=== PATIENT | female | born 1950 | race Caucasian/White ===

== ENCOUNTER 2018-02-17 13:15 | Outpatient (CLI) | payer BC | END 2018-02-17 13:16 | disposition home or self-care (01) | LOC: WCC 13:15 | PROVIDERS: ATTEND Family Medicine | DX: K94.10 Enterostomy complication, unspecified (principal) | CPT/HCPCS: 99211; G0463 ==

== ENCOUNTER 2018-11-20 10:57 | Outpatient (CLI) | payer BC ==
[2018-11-20] MEDS ORDERED: Sodium Chloride 0.9% 15 ML NEB ONE (11:11)
== END 2018-11-20 10:58 | disposition home or self-care (01) ==
LOC: WCC 10:57
PROVIDERS: ATTEND Family Medicine
DX: K94.10 Enterostomy complication, unspecified (principal)
CPT/HCPCS: 99211; A4218; G0463

== ENCOUNTER 2020-04-16 14:21 | Inpatient (IN) | payer BC ==
[2020-04-16 14:48] LABS: #Eosinphils 0.2 thou/uL (0.0-0.7); #Lymphocytes 1.4 thou/uL (1.20-3.40); #Monocytes 0.3 thou/uL (0.11-0.59); #Neutrophils 2.8 thou/uL (1.40-6.50); %Eosinophils 4.1 % (0.0-10.0); %Lymphocytes 28.9 % (21.0-51.0); %Monocytes 6.5 % (0.0-10.0); %Neutrophils 59.6 % (42.0-75.0); Hemoglobin 12.8 g/dL (12.0-16.0); Mean Corpuscular HGB CONC 32.7 g/dL (32.0-36.0); Mean Corpuscular Hemoglobin 27.9 pg (27.0-31.0); Mean Corpuscular Volume 85.3 fL (78.0-98.0); Mean Platelet Volume 9.5 fL (7.4-10.4); Platelet Count 143 thou/uL (130-400); RBC Distribution Width 14.6 % (11.5-14.5); Red Blood Cell (RBC) Count 4.58 mill/uL (4.20-5.40); White Blood Cell (WBC) Count 4.7 thou/uL (4.8-10.8)
[2020-04-16 15:10] LABS: ALT (SGPT) 37 U/L (8-55); AST (SGOT) 44 U/L (5-34); Albumin 4.1 g/dL (3.4-4.8); Alkaline Phosphatase 78 U/L (40-110); Anion Gap 11 mmol/L (10-20); BUN (Urea Nitrogen) 18 mg/dL (9.8-20.1); Bilirubin, Total 0.4 mg/dL (0.2-1.2); Calc. Creatinine Clearance 0 mL/min (70-130); Calcium 9.3 mg/dL (7.8-10.44); Carbon Dioxide 24 mmol/L (23-31); Chloride 107 mmol/L (98-107); Estimated GFR-MDRD 49; Globulin 3.4 g/dL (2.4-3.5); Glucose 159 mg/dL (80-115); Potassium 3.9 mmol/L (3.5-5.1); Protein, Total 7.5 g/dL (6.0-8.3); Sodium 138 mmol/L (136-145)
[2020-04-16 17:55] LABS: Hemoglobin 11.1 g/dL (12.0-16.0)
--- NOTE | 2020-04-16 19:46 | PDOC.HHP ---
Hospitalist HPI - History of Present Illness gi bleeding History of Present Illness: Case of an 69y/o female with pmhx of chron's disease s/p total colectomy, gerd and alma who come to hospital due to bleeding into ileostomy. patient states she was on her usual state of health until today when she noted that her ileostomy bag had BRB, she did not gave much importance and continued her day but in 3 more occasions her ileostomy bag was full of BRB and she began to feel weak and lightheaded for which she came to hospital for evaluation. patient denies fever chills nausea vomiting or abdominal pain Hospitalist ROS - Review of Systems All other systems reviewed; all pertinent +/- noted in HPI/Subj Hospitalist History - Past Medical History Gastrointestinal: reports: GERD, Inflam bowel disease Psych: reports: Anxiety - Past Surgical History Past Surgical History: reports: Cholecystectomy, Hysterectomy Other Surgical History: total colectomy with ileostomy - Family History Family History: reports: diabetes mellitus Other Family History: mother alzheimer - Social History Smoking Status: Never smoker Alcohol: reports: None Drugs: reports: none Living Situation: With Family Activity level: independent ambulation - Exam General Appearance: awake alert Eye: PERRL, anicteric sclera ENT: normocephalic atraumatic, no oropharyngeal lesions Neck: supple, symmetric, no JVD, no thyromegaly Heart: RRR, no murmur, no gallops, no rubs Respiratory: CTAB, no wheezes, no rales, no ronchi Gastrointestinal: soft, non-tender, non-distended, normal bowel sounds Extremities: no cyanosis, no clubbing, no edema Skin: normal turgor, no lesions, no rashes Neurological: cranial nerve grossly intact, normal sensation to touch Musculoskeletal: normal tone, normal strength Psychiatric: normal affect, normal behavior, A&O x 3 Hospitalist Results - Labs Result Diagrams: 04/16/20 17:46 04/16/20 14:37 Lab results: WBC 4.7 thou/uL (4.8-10.8) L 04/16/20 14:37 Hgb 11.1 g/dL (12.0-16.0) L 04/16/20 17:46 Hct 34.2 % (36.0-47.0) L 04/16/20 17:46 MCV 85.3 fL (78.0-98.0) 04/16/20 14:37 Plt Count 143 thou/uL (130-400) 04/16/20 14:37 Neutrophils % 59.6 % (42.0-75.0) 04/16/20 14:37 Sodium 138 mmol/L (136-145) 04/16/20 14:37 Potassium 3.9 mmol/L (3.5-5.1) 04/16/20 14:37 Chloride 107 mmol/L (98-107) 04/16/20 14:37 Carbon Dioxide 24 mmol/L (23-31) 04/16/20 14:37 BUN 18 mg/dL (9.8-20.1) 04/16/20 14:37 Creatinine 1.10 mg/dL (0.6-1.1) 04/16/20 14:37 Glucose 159 mg/dL (80-115) H 04/16/20 14:37 Calcium 9.3 mg/dL (7.8-10.44) 04/16/20 14:37 Total Bilirubin 0.4 mg/dL (0.2-1.2) 04/16/20 14:37 AST 44 U/L (5-34) H 04/16/20 14:37 ALT 37 U/L (8-55) 04/16/20 14:37 Alkaline Phosphatase 78 U/L (40-110) 04/16/20 14:37 Serum Total Protein 7.5 g/dL (6.0-8.3) 04/16/20 14:37 Albumin 4.1 g/dL (3.4-4.8) 04/16/20 14:37 Hospitalist H&P A/P - Problem (1) GI bleeding Code(s): K92.2 - GASTROINTESTINAL HEMORRHAGE, UNSPECIFIED Status: Acute (2) ALMA (generalized anxiety disorder) Code(s): F41.1 - GENERALIZED ANXIETY DISORDER Status: Acute (3) GERD (gastroesophageal reflux disease) Code(s): K21.9 - GASTRO-ESOPHAGEAL REFLUX DISEASE WITHOUT ESOPHAGITIS Status: Acute (4) Hx of Crohn's disease Code(s): Z87.19 - PERSONAL HISTORY OF OTHER DISEASES OF THE DIGESTIVE SYSTEM Status: Acute - Plan Plan: - protonix drip - liquid diet / npo after midnight - gi consulted possible egd in am - h/h q 6-8hr
[2020-04-16 19:57] LABS: INR-International Normal Ratio 1.1; Prothrombin Time 14.2 sec (12.0-14.7)
[2020-04-16] MEDS: Pantoprazole 80 MG in Sodium Chloride 0.9% 100 ML IVPB SCH (21:39)
[2020-04-16] MEDS: Sodium Chloride 0.9% 1,000 ML IV SCH (21:39)
[2020-04-16 22:21] VITALS: BMI 30.9
[2020-04-17] MEDS ORDERED: Ondansetron PF 4 MG/2 ML Vial IVP PRN (00:05)
[2020-04-17 04:12] LABS: #Basophils 0.1 thou/uL (0.0-0.2); #Eosinphils 0.1 thou/uL (0.0-0.7); #Lymphocytes 1.2 thou/uL (1.20-3.40); #Monocytes 0.4 thou/uL (0.11-0.59); #Neutrophils 4.1 thou/uL (1.40-6.50); %Basophils 0.9 % (0.0-1.0); %Eosinophils 2.5 % (0.0-10.0); %Lymphocytes 20.8 % (21.0-51.0); %Monocytes 6.8 % (0.0-10.0); %Neutrophils 69.1 % (42.0-75.0); Hemoglobin 9.8 g/dL (12.0-16.0); Mean Corpuscular HGB CONC 33.5 g/dL (32.0-36.0); Mean Corpuscular Hemoglobin 28.5 pg (27.0-31.0); Mean Corpuscular Volume 85.2 fL (78.0-98.0); Mean Platelet Volume 9.4 fL (7.4-10.4); Platelet Count 129 thou/uL (130-400); RBC Distribution Width 14.6 % (11.5-14.5); Red Blood Cell (RBC) Count 3.42 mill/uL (4.20-5.40)
[2020-04-17 04:34] LABS: ALT (SGPT) 24 U/L (8-55); AST (SGOT) 30 U/L (5-34); Albumin 3.3 g/dL (3.4-4.8); Alkaline Phosphatase 53 U/L (40-110); Anion Gap 9 mmol/L (10-20); BUN (Urea Nitrogen) 15 mg/dL (9.8-20.1); Bilirubin, Total 0.4 mg/dL (0.2-1.2); Calc. Creatinine Clearance 84 mL/min (70-130); Carbon Dioxide 24 mmol/L (23-31); Chloride 109 mmol/L (98-107); Estimated GFR-MDRD 68; Globulin 2.6 g/dL (2.4-3.5); Glucose 108 mg/dL (80-115); Protein, Total 5.9 g/dL (6.0-8.3); Sodium 138 mmol/L (136-145)
[2020-04-17] MEDS: Pantoprazole 80 MG in Sodium Chloride 0.9% 100 ML IVPB SCH (05:15)
[2020-04-17 06:06] LABS: Hemoglobin 9.4 g/dL (12.0-16.0)
[2020-04-17] MEDS ORDERED: Lidocaine 1% PF 5 ML VIAL ONE (11:43)
[2020-04-17] MEDS ORDERED: PROPOFOL 200 MG/20 ML VIAL ONE (11:43)
--- NOTE | 2020-04-17 11:43 | CON ---
DATE OF CONSULTATION: 04/17/2020 REASON FOR CONSULTATION: Bright red blood per ostomy. CONSULTING PROVIDER: Jak Mir DO HISTORY OF PRESENT ILLNESS: The patient is a 69-year-old female with past medical history of GERD, anxiety/generalized anxiety disorder, and Crohn disease, status post total colectomy, presenting with bright red blood per her ostomy. On speaking with the patient, she states that she was diagnosed with Crohn disease approximately 33 years ago when she began having increased abdominal cramping, diarrhea and possible hematochezia. She subsequently underwent colonoscopy at that time and was noted to have severe colonic involvement. She was put on steroids with some response to treatment and was actually placed on tube feeds for "bowel rest." Ultimately, she did not respond effectively to steroids and subsequently underwent total colectomy approximately 1 month later after her diagnosis of Crohn disease. Since that time, she has not been placed on any medications or treatments for her Crohn disease, nor has she had any significant workup since then. She is currently being followed by Dr. Allen mcgovern at [facility], but has not had any recent ileoscopies since. She did state that she had an EGD performed there within the last few years for acid reflux and diagnosed only with a hiatal hernia. In any case, the patient was in her usual state of health until approximately yesterday when she began having bright red blood per her ostomy, having approximately 5 to 6 discrete episodes of emptying her bag over the last 12 to 24 hours with the bag consisting primarily of bright red blood with some stool mixed in. This continued on until today, but this morning she noted that when she emptied her ostomy, she no longer had any blood. During this time period, she denies any nausea, vomiting, fevers, chills, hematemesis, melena, odynophagia, dysphagia, hard stools, or weight loss. Of note, the patient has manipulated her ostomy within the last 24 hours, but this was after the onset of bleeding and not prior to. She also states she had a prior history of decreased hemoglobin/hematocrit in 2014 with workup at that time negative for any obvious etiology. REVIEW OF SYSTEMS: A 10-category review of systems was obtained with all responses negative except for the pertinent positives as listed in the HPI. PAST MEDICAL HISTORY: As per HPI. PAST SURGICAL HISTORY: Subtotal colectomy, cholecystectomy, hysterectomy, multiple abdominal surgeries for fistula correction secondary to complications from her cholecystectomy. FAMILY HISTORY: Denies any GI malignancies. SOCIAL HISTORY: Denies any alcohol, tobacco, or illicit drug use. OUTPATIENT MEDICATIONS: Reviewed. ALLERGIES: NO KNOWN DRUG ALLERGIES. PHYSICAL EXAMINATION: VITAL SIGNS: Temperature 97.7, pulse 82, blood pressure 115/55, respiratory rate 16, saturating 98% on room air. GENERAL: The patient is lying in bed, in no acute distress. Alert and oriented x4. HEENT: Normocephalic and atraumatic. NECK: Supple. No JVD or scleral icterus noted. CARDIOVASCULAR: Regular rate and rhythm with no discernible murmurs, gallops, or rubs. RESPIRATORY: Clear to auscultation bilaterally with no discernible wheezes or rales. ABDOMEN: Normoactive bowel sounds. Soft, nontender, nondistended. Ileostomy noted in the right mid to right lower quadrant with skin surrounding the ostomy healthy in appearance with no signs of skin breakdown nor was there any evidence of blood or active bleeding. EXTREMITIES: No cyanosis or clubbing. Mild nonpitting edema noted of the bilateral lower extremities. LABORATORY DATA: CBC with a white blood cell count of 6, hemoglobin 9.8, hematocrit 29.1, platelets 129. INR 1.1. Chemistry with a sodium of 138, potassium 4, chloride 109, CO2 of 24, BUN 15, creatinine 0.83, glucose 108. AST 30, ALT 24, alkaline phosphatase 53, total bilirubin 0.4, albumin 3.3. IMAGING DATA: No current GI imaging is available for review. ASSESSMENT AND PLAN: The patient is a 69-year-old female with past medical history of gastroesophageal reflux disease, anxiety/generalized anxiety disorder, and a prior diagnosis of Crohn disease (made 33 years ago), status post total colectomy for colonic involvement, now presenting with bright red blood per her ostomy concerning for upper gastrointestinal bleeding. Upper gastrointestinal bleeding: The patient is presenting with acute onset of bright red blood per ostomy that started yesterday with approximately 5 to 6 discrete episodes of bright red blood per the ostomy. However, she has not had any associated symptoms with this particular finding and on examination today, she has had decreased amount of blood with no blood per her ostomy this morning. However, she is currently taking meloxicam on a daily basis, which could contribute to inflammation/irritation of the gastrointestinal tract and subsequently lead to ulceration and/or bleeding. Differential could include esophagitis, gastritis, duodenitis, small bowel Crohn disease, peptic ulcer disease, arteriovenous malformation, Dieulafoy lesion and/or gastrointestinal neoplasm (less likely at this time). RECOMMENDATIONS: 1. We would continue to trend her H and H and transfuse as necessary to maintain an H and H of 7/21. 2. Continue to monitor clinically for signs of active GI bleeding. 3. We would avoid any anticoagulation for the time being in light of active blood loss. 4. We would continue n.p.o. status in preparation for EGD/ileoscopy later today. 5. We will continue the patient on PPI drip for the time being and alter based on upper endoscopy results. 6. If the upper GI endoscopy is negative, we would consider a tagged red cell scan for further evaluation if the patient exhibits continued blood loss. We will continue to follow. Please call with any questions. Job ID: [id number]
[2020-04-17] MEDS: Sodium Chloride 0.9% 1,000 ML IV SCH (15:32)
[2020-04-17 16:46] LABS: Hemoglobin 8.8 g/dL (12.0-16.0)
[2020-04-17 17:09] LABS: Iron Binding Capacity, Total 341 mcg/dL (265-497)
[2020-04-17 17:20] LABS: Iron 41 ug/dL (50-170)
--- NOTE | 2020-04-17 17:37 | OP ---
DATE OF PROCEDURE: 04/17/2020 REASON FOR PROCEDURE: Blood in ostomy. PROCEDURES PERFORMED: 1. Esophagogastroduodenoscopy with biopsy. 2. Ileoscopy (diagnostic). DESCRIPTION OF PROCEDURE: After the risks and benefits of the procedure were explained to the patient including risks of bleeding, infection, perforation, reactions to anesthesia, aspiration, and/or pain, informed consent was obtained. The patient was then taken to the endoscopy suite where she was placed in the left lateral decubitus position followed by introduction of sedation via propofol and anesthesia support. Once adequate sedation was achieved, the standard gastroscope was introduced into the mouth with intubation of the esophagus, stomach, and the proximal small intestines with the findings listed below. Upon conclusion of this portion of the procedure and with relatively normal findings, the gastroscope was removed from the upper GI tract, and after opening the ileostomy bag, the same gastroscope was used to evaluate the external ostomy as well as advanced into the ileostomy to approximately 35 to 40 cm past the ostomy within the ileum with the findings listed below. The patient tolerated this portion of the procedure well with no immediate perioperative complications. Upon conclusion of this phase of the procedure, all equipment was then removed from the patient and she was transferred to PACU in satisfactory condition. EGD FINDINGS: Esophagus: Normal-appearing mucosa was seen in the proximal, mid, and distal esophagus. A mildly irregular Z-line was noted in the distal esophagus, but there was no evidence of Brady's type mucosa or active/recent bleeding. Otherwise, there was no evidence of erosions, ulcerations, or mass lesions. Stomach: Multiple flesh-colored polyps were seen in the gastric fundus and body, measuring anywhere between 2 and 17 mm in size. They did not exhibit any increased erythema, ulceration, or evidence of active/recent bleeding. Multiple biopsies were taken from these polyps for further evaluation of possible adenomatous tissue. Otherwise, normal-appearing mucosa was seen in the gastric cardia, greater curvature, antrum, and incisura. There was no evidence of erosions, ulcerations, mass lesions, or active/recent bleeding seen throughout the entire stomach. Duodenum: Normal-appearing mucosa was seen in both the duodenal bulb and second portion of the duodenum. A small duodenal diverticulum was seen just past the duodenal sweep, but did not exhibit any blood clot nor did it have any ulceration associated with it. Otherwise, normal-appearing mucosa was seen in both the duodenal bulb and second portion of the duodenum. There was no evidence of erosions, ulcerations, mass lesions, or active/recent bleeding. IMPRESSION: 1. Multiple gastric polyps seen throughout the gastric fundus and body, consistent with fundic gland polyps related to proton pump inhibitor use. 2. Small nonbleeding duodenal diverticulum. 3. Slightly irregular Z-line with no evidence of esophagitis. ILEOSCOPY FINDINGS: Ostomy: On visualization of the ostomy through the camera and the ostomy bag itself, there was increased erythema, friability and a blood clot formation along the lateral aspect of the ostomy itself. However, there was no evidence of active bleeding associated with this. The mucosal lining appeared to be more macerated with no particular focal area of visible vessel or even active bleeding in this region. No intervention was taken given lack of target for cauterization and lack of active bleeding at this time. The gastroscope was then introduced into the ileum and advanced to approximately 35 to 40 cm past the ostomy orifice itself. Normal-appearing ileum was seen throughout this entire region with no evidence of erosions, ulcerations, mass lesions, or active/recent bleeding. IMPRESSION: 1. Increased mucosal erythema, friability, and a blood clot noted along the outward aspect of the ostomy itself, that was in the bag, most likely being the source of her recent bleeding. 2. Otherwise normal ileoscopy. RECOMMENDATIONS: 1. Would continue to trend her hemoglobin and hematocrit and transfuse as necessary to maintain the hemoglobin and hematocrit of 7/21. 2. Continue to monitor clinically for signs of active GI bleeding. 3. We will follow up on the biopsy results with repeat upper endoscopy based on pathology report. 4. If the patient continues to have bright red blood per ostomy, I would consult General Surgery Service for evaluation of the external ostomy and possible cauterization. 5. Would continue to avoid NSAIDs and/or anticoagulation for the time being. 6. Could discontinue PPI if not already taking as an outpatient. We will sign off at this time. Please call with any questions. Job ID: [id number]
--- NOTE | 2020-04-17 18:55 | PRG ---
DATE OF SERVICE: 04/17/2020 SUBJECTIVE: A 69-year-old female with Crohn disease, status post total colectomy and ileostomy, presented to the emergency room yesterday with lower GI bleeding. She had 3 episodes of bleeding while in the emergency room. She also felt weak and lightheaded. At this time, the patient denies any new complaints. No chest pain or shortness of breath reported. She underwent EGD and diagnostic ileoscopy. The ileoscopy showed increased mucosal erythema, friability, and blood clot along the outward aspect of the ostomy. The EGD showed multiple gastric polyps with small nonbleeding duodenal diverticulum. REVIEW OF SYSTEMS: All other review of systems was reviewed and was found negative. LABORATORY FINDINGS: Telemetry monitoring by my review showed sinus rhythm. H and H dropped to 8.8 from 12.8 on admission. PT/INR was normal. Ferritin was 7.64 with iron of 41 and ferritin of 341. PHYSICAL EXAMINATION: GENERAL: A 69-year-old female in no apparent distress. LUNGS: Clear to auscultation bilaterally. HEART: S1 and S2 present. Regular. ABDOMEN: Soft and nontender. Bowel sounds present. Ileostomy noted without any bloody stool. EXTREMITIES: No edema or calf tenderness. NEUROLOGIC: Grossly nonfocal. IMPRESSION: 1. Gastrointestinal bleeding. 2. Acute blood loss anemia. 3. Generalized weakness and lightheadedness secondary to above. 4. Anxiety. 5. Gastroesophageal reflux disease. 6. History of Crohn disease, status post total colectomy and ileostomy. PLAN: We will continue to trend H and H. We will continue IV PPIs. We will start her on IV iron supplementation. The patient is currently on full liquid diet. Stool workup was negative for Campylobacter or E coli. We will check orthostatic vitals in a.m. The patient understands the above plan of care. Job ID: [id number]
[2020-04-17] MEDS ORDERED: Iron, Sodium Ferric Gluconate 250 MG in Sodium Chloride 0.9% 100 ML IVPB SCH (19:30)
[2020-04-17 21:48] LABS: Hemoglobin 8.8 g/dL (12.0-16.0)
[2020-04-18 04:54] LABS: Hemoglobin 8.6 g/dL (12.0-16.0)
[2020-04-18] MEDS: Pantoprazole 40 MG VIAL IVP SCH (08:48)
[2020-04-18] MEDS ORDERED: Iron, Sodium Ferric Gluconate 250 MG in Sodium Chloride 0.9% 100 ML IVPB SCH (13:45)
--- NOTE | 2020-04-18 14:31 | PDOC.HOSPP ---
- Subjective Encounter Date: 04/18/20 Encounter Time: 13:00 Subjective: Patient seen and examined for GI bleed. Had small amt of blood in ileostomy bag. Feels weak. No N/V. No other complaints. No overnight events - Objective Vital Signs & Weight: Vital Signs (12 hours) Temp Pulse Resp BP BP BP Pulse Ox 04/18/20 11:48 98.3 F 73 16 110/57 L 95 04/18/20 07:56 97.5 F L 72 18 99/54 L 107/58 L 120/60 98 04/18/20 07:10 96 04/18/20 03:28 97.8 F 69 16 105/55 L 96 Weight Weight 186 lb 3 oz I&O: 04/17/20 04/18/20 04/19/20 06:59 06:59 06:59 Intake Total 1035 463 Balance 1035 463 Result Diagrams: 04/18/20 04:39 04/17/20 03:52 Hospitalist ROS - Review of Systems Respiratory: denies: cough, dry, shortness of breath, hemoptysis, SOB with excertion, pleuritic pain, sputum, wheezing, other Cardiovascular: denies: chest pain, palpitations, orthopnea, paroxysmal noc. dyspnea, edema, light headedness, other - Medication Medications: Active Medications Generic Name Dose Route Start Last Admin Trade Name Freq PRN Reason Stop Dose Admin Ondansetron HCl 4 mg 04/17/20 00:05 04/17/20 00:17 Zofran IVP 4 mg Q6H PRN Administration Nausea Pantoprazole Sodium 40 mg 04/18/20 09:00 04/18/20 08:48 Protonix IVP 40 mg DAILY GEORGIANA Administration Sodium Chloride 10 ml 04/16/20 19:37 04/17/20 19:25 Flush - Normal Saline IVF 10 ml PRN PRN Administration Saline Flush - Exam General Appearance: NAD Neck: supple, no JVD Heart: no gallops, no rubs Respiratory: no wheezes, no rales Gastrointestinal: non-tender, non-distended, normal bowel sounds Extremities: no cyanosis, no clubbing Psychiatric: normal affect, A&O x 3 Hosp A/P - Plan DVT proph w/SCDs 1. GI bleeding prob at the ileostomy site 2. Acute blood loss anemia/ Iron deficiency anemia 3. Generalized weakness and lightheadedness secondary to above. 4. Anxiety. 5. Gastroesophageal reflux disease. 6. History of Crohn disease, status post total colectomy and ileostomy. PLAN: IV iron Cont IV PPIs Repeat HH today GI following AM labs Cont other meds as above
[2020-04-18 14:44] LABS: Hemoglobin 8.2 g/dL (12.0-16.0)
[2020-04-18] MEDS: ALPRAZolam 0.25 MG TAB PO PRN (17:58)
[2020-04-18] MEDS: Sodium Chloride 0.9% 1,000 ML IV SCH (18:00)
[2020-04-18 19:03] LABS: Hemoglobin 8.3 g/dL (12.0-16.0)
[2020-04-18 23:45] LABS: Hemoglobin 7.5 g/dL (12.0-16.0)
[2020-04-19 04:11] LABS: Hemoglobin 7.2 g/dL (12.0-16.0)
[2020-04-19] MEDS: Sodium Chloride 0.9% 1,000 ML IV SCH (09:42)
[2020-04-19] MEDS: Pantoprazole 40 MG VIAL IVP SCH (09:43)
[2020-04-19 13:40] LABS: Hemoglobin 6.9 g/dL (12.0-16.0)
[2020-04-19] MEDS: D5W-AA 4.25% with LYTES 1,000 ML BAG IV SCH (18:13)
[2020-04-19 20:24] LABS: Hemoglobin 8.6 g/dL (12.0-16.0)
--- NOTE | 2020-04-19 23:22 | PDOC.HOSPP ---
- Subjective Encounter Date: 04/19/20 Encounter Time: 13:00 Subjective: Patient seen and examined for GI bleed. Ileostomy with bloody stool. Feels lightheaded. No other complaints. No overnight events - Objective Vital Signs & Weight: Vital Signs (12 hours) Temp Pulse Pulse Resp BP BP BP 04/19/20 20:15 97.7 F 82 16 123/58 L 04/19/20 17:00 98.5 F 82 82 16 101/54 L 101/54 L 04/19/20 14:00 98.5 F 81 16 110/56 L 04/19/20 13:30 98.2 F 79 16 114/58 L 04/19/20 11:42 98.3 F 82 16 109/55 L Pulse Ox 04/19/20 20:15 96 04/19/20 17:00 99 04/19/20 14:00 98 04/19/20 13:30 100 04/19/20 11:42 97 Weight Weight 186 lb 3 oz I&O: 04/18/20 04/19/20 04/20/20 06:59 06:59 06:59 Intake Total 2243 2673 Output Total 2475 375 Balance -232 2298 Result Diagrams: 04/19/20 20:02 04/17/20 03:52 Additional Labs: Laboratory Tests 04/19/20 13:31 Hgb 6.9 L Hospitalist ROS - Review of Systems Respiratory: denies: cough, dry, shortness of breath, hemoptysis, SOB with excertion, pleuritic pain, sputum, wheezing, other Cardiovascular: reports: light headedness. denies: chest pain, palpitations, orthopnea, paroxysmal noc. dyspnea, edema, other - Medication Medications: Active Medications Generic Name Dose Route Start Last Admin Trade Name Freq PRN Reason Stop Dose Admin Alprazolam 0.25 mg 04/18/20 17:42 04/18/20 17:58 Xanax PO 0.25 mg BIDPRN PRN Administration Anxiety Amino Acids/Electrolytes/Dextrose 1,000 ml 04/19/20 12:00 04/19/20 18:13 Clinimix E 4.25/5 IV 1,000 ml INF GE[place]NA Administration Ondansetron HCl 4 mg 04/17/20 00:05 04/17/20 00:17 Zofran IVP 4 mg Q6H PRN Administration Nausea Pantoprazole Sodium 40 mg 04/18/20 09:00 04/19/20 09:43 Protonix IVP 40 mg DAILY [place]NA Administration Sodium Chloride 10 ml 04/16/20 19:37 04/17/20 19:25 Flush - Normal Saline IVF 10 ml PRN PRN Administration Saline Flush - Exam General Appearance: NAD Neck: supple, no JVD Heart: RRR, no gallops Respiratory: no wheezes, no ronchi Gastrointestinal: non-tender, normal bowel sounds Extremities: no edema Hosp A/P - Plan DVT proph w/SCDs 1. GI bleeding prob at the ileostomy site 2. Acute blood loss anemia/ Iron deficiency anemia s/p IV iron 3. Generalized weakness and lightheadedness secondary to above. 4. Anxiety. 5. Gastroesophageal reflux disease. 6. History of Crohn disease, status post total colectomy and ileostomy. PLAN: Transfuse 1 unit PRBC Cont IV PPIs Repeat HH Q6h GI/Surg following Cont other meds as above Transfuse if Hb <7
--- NOTE | 2020-04-19 23:44 | CON ---
DATE OF CONSULTATION: CHIEF COMPLAINT: Ileostomy bleeding. HISTORY OF PRESENT ILLNESS: The patient is a 69-year-old female with a long history of Crohn disease, who had a total colectomy for Crohn disease done in [place]. She was admitted with stomal bleeding. She denies any history of trauma or abrasion to the stoma. Yesterday, she underwent endoscopy and Dr. Booker said that the mucosa looked fine and that he saw bleeding coming from the external mucosa. He saw no evidence of active Crohn's in her intestinal system. She bled significantly from a level of hemoglobin 12.8 to 6.9. The patient denies any abdominal pain. PAST MEDICAL HISTORY: Anxiety, depression, gastroesophageal reflux, Crohn disease. PAST SURGICAL HISTORY: Subtotal colectomy, cholecystectomy, hysterectomy, multiple abdominal surgeries. FAMILY HISTORY: No GI malignancies. SOCIAL HISTORY: No tobacco or alcohol. ALLERGIES: SHE HAS NO KNOWN DRUG ALLERGIES. PHYSICAL EXAMINATION: VITAL SIGNS: Temperature 98.5, pulse 98, blood pressure 110/56. GENERAL: She is awake, alert, does not appear to be in any distress. HEENT: Unremarkable. LUNGS: Clear. HEART: Regular rate and rhythm. ABDOMEN: Soft, nondistended. She is obese. She has an ileostomy in the right lower quadrant. EXTREMITIES: Unremarkable. Now, the appliance was removed. The mucosa inspected. I saw no active bleeding on the external portion of her ileostomy. There was no blood coming out from the ostomy. ASSESSMENT: Gastrointestinal bleed from ileostomy, appears to be controlled at this time. PLAN: I did bring with me the suture kit that if it should start bleeding again, we could suture-ligate this. Now the patient has a very good relationship with her surgeon in [place]. She has been in communication with him. She does not want any kind of surgical intervention done here if at all possible. She would like to go back to [place], so hopefully she will stop bleeding and she can follow up with her surgeon in [place]. Job ID: [id number]
[2020-04-20 05:02] LABS: Hemoglobin 7.8 g/dL (12.0-16.0)
[2020-04-20] MEDS: D5W-AA 4.25% with LYTES 1,000 ML BAG IV SCH ×2 (05:44→22:05)
[2020-04-20 08:37] LABS: Hemoglobin 8.6 g/dL (12.0-16.0)
[2020-04-20] MEDS: Pantoprazole 40 MG VIAL IVP SCH (09:50)
--- NOTE | 2020-04-20 14:01 | PDOC.HOSPP ---
- Subjective Encounter Date: 04/20/20 Encounter Time: 09:30 Subjective: Patient seen and examined for GIB. s/p 1 unit PRBC yesterday. Lightheadedness slowly improving. No new bleeding. On clear liqd diet. No new complaints. No overnight events - Objective Vital Signs & Weight: Vital Signs (12 hours) Temp Pulse Resp BP Pulse Ox 04/20/20 11:32 98.3 F 82 16 127/65 100 04/20/20 08:00 98.3 F 90 16 133/62 97 04/20/20 03:42 98.2 F 87 16 106/56 L 95 Weight Weight 186 lb 3 oz I&O: 04/19/20 04/20/20 04/21/20 06:59 06:59 06:59 Intake Total 2243 2673 2729 Output Total 7945 500 Balance -232 2173 2729 Result Diagrams: 04/20/20 08:26 04/17/20 03:52 Additional Labs: Laboratory Tests 04/17/20 04/17/20 04/19/20 16:35 16:35 13:31 Hgb 6.9 L Iron 41 L TIBC 341 Ferritin 7.64 L Hospitalist ROS - Review of Systems Respiratory: denies: cough, dry, shortness of breath, hemoptysis, SOB with excertion, pleuritic pain, sputum, wheezing, other Cardiovascular: denies: chest pain, palpitations, orthopnea, paroxysmal noc. dyspnea, edema, light headedness, other Gastrointestinal: denies: nausea, vomiting, abdominal pain, diarrhea, constipation, melena, hematochezia, other - Medication Medications: Active Medications Generic Name Dose Route Start Last Admin Trade Name Freq PRN Reason Stop Dose Admin Alprazolam 0.25 mg 04/18/20 17:42 04/18/20 17:58 Xanax PO 0.25 mg BIDPRN PRN Administration Anxiety Amino Acids/Electrolytes/Dextrose 1,000 ml 04/19/20 12:00 04/20/20 05:44 Clinimix E 4.25/5 IV 1,000 ml INF [place] Administration Ondansetron HCl 4 mg 04/17/20 00:05 04/17/20 00:17 Zofran IVP 4 mg Q6H PRN Administration Nausea Pantoprazole Sodium 40 mg 04/18/20 09:00 04/20/20 09:50 Protonix IVP 40 mg DAILY [place] Administration Sodium Chloride 10 ml 04/16/20 19:37 04/17/20 19:25 Flush - Normal Saline IVF 10 ml PRN PRN Administration Saline Flush - Exam General Appearance: NAD Heart: RRR, no gallops Respiratory: no wheezes, no ronchi Gastrointestinal: soft, non-tender, non-distended, normal bowel sounds Gastrointestinal - other findings: ileostomy Extremities: no cyanosis, no clubbing Neurological: no new deficit Psychiatric: normal affect, A&O x 3 Hosp A/P - Plan DVT proph w/SCDs 1. GI bleeding prob at the ileostomy site 2. Acute blood loss anemia/Iron deficiency anemia s/p IV iron and 1 unit PRBC 3. Generalized weakness and lightheadedness secondary to above. 4. Anxiety. 5. GERD 6. History of Crohn disease, status post total colectomy and ileostomy. PLAN: Cont clear liqd diet Cont IV PPI Repeat HH later today and in AM GI/Surg following Cont other meds as above Transfuse if Hb <7 DC prob in AM if stable
[2020-04-20 14:51] LABS: Hemoglobin 8.5 g/dL (12.0-16.0)
[2020-04-20 17:51] LABS: Hemoglobin 8.6 g/dL (12.0-16.0)
[2020-04-20] MEDS: ALPRAZolam 0.25 MG TAB PO PRN (19:22)
[2020-04-20 23:17] LABS: Hemoglobin 8.7 g/dL (12.0-16.0)
[2020-04-20] MEDS: Acetaminophen 325 MG TAB PO PRN (23:20)
[2020-04-21 03:47] LABS: Hemoglobin 7.6 g/dL (12.0-16.0)
--- NOTE | 2020-04-21 08:13 | PRG ---
DATE OF SERVICE: 04/21/2020 SUBJECTIVE: The patient had another episode of bleeding now. Day before yesterday, I took the entire appliance off including the wafer and bag. We cleaned it up. I could not find any source for the bleeding externally. Last night, she started passing clots out her ostomy. Again, she looked and could not see a source for it externally and felt like the clots were coming from inside. OBJECTIVE: GENERAL: She is in no apparent distress. She is having no abdominal pain. LUNGS: Clear. HEART: Regular rate and rhythm. ABDOMEN: Soft, nondistended, nontender. The ostomy effluent is nonbloody. The stoma itself has no ulcerations or evidence of active bleeding. LABORATORY DATA: Her H and H are 7.6 and 23. Electrolytes are fine. ASSESSMENT: This bleeding must be coming in the canal of the ostomy, which I cannot get to that, it is too tight for me to dilate up to expose an area to even access. PLAN: She probably needs to have her ostomy revised. She does not want us to do that here. She prefers to go to [place] where her original surgeon lives. She has been in contact with him. Plan possible repeat endoscopy today, but she probably needs to be transferred to [place], so that this can be addressed. Job ID: [id number]
[2020-04-21] MEDS: Pantoprazole 40 MG VIAL IVP SCH (09:00)
--- NOTE | 2020-04-21 11:47 | NM ---
Exam: Nuclear medicine tagged red blood cell scan TECHNIQUE: Patient was administered 28.1 mCi of tagged red blood cell intravenously. Imaging was perf ormed for approximately 90 minutes FINDINGS: There is a focus of increased radiotracer in the right lower quadrant corresponding to the patient's ileostomy site. Patient states that her entire colon has been removed. IMPRESSION: Focal uptake of the radiotracer in the right lower quadrant corresponding to the ileostom y site.
--- NOTE | 2020-04-21 14:12 | PDOC.HOSPP ---
- Subjective Encounter Date: 04/21/20 Encounter Time: 13:30 Subjective: Patient seen and examined for GIB. No new complaints. No overnight events - Objective Vital Signs & Weight: Vital Signs (12 hours) Temp Pulse Resp BP BP BP BP 04/21/20 11:40 98.2 F 103 H 18 113/63 04/21/20 08:00 98 F 80 16 114/60 110/52 L 114/60 113/57 L 04/21/20 03:39 97.9 F 70 16 109/55 L Pulse Ox 04/21/20 11:40 100 04/21/20 08:00 100 04/21/20 03:39 94 L Weight Admit Weight 186 lb 3 oz Weight 186 lb 3 oz I&O: 04/20/20 04/21/20 04/22/20 06:59 06:59 06:59 Intake Total 2673 5791 200 Output Total 500 3700 Balance 2173 2091 200 Result Diagrams: 04/21/20 03:36 04/17/20 03:52 Hospitalist ROS - Medication Medications: Active Medications Generic Name Dose Route Start Last Admin Trade Name Freq PRN Reason Stop Dose Admin Acetaminophen 650 mg 04/17/20 08:34 04/20/20 23:20 Tylenol PO 650 mg Q4H PRN Administration Headache/Fever/Mild Pain (1-3) Alprazolam 0.25 mg 04/18/20 17:42 04/20/20 19:22 Xanax PO 0.25 mg BIDPRN PRN Administration Anxiety Amino Acids/Electrolytes/Dextrose 1,000 ml 04/19/20 12:00 04/20/20 22:05 Clinimix E 4.25/5 IV 1,000 ml INF [place] Administration Ondansetron HCl 4 mg 04/17/20 00:05 04/17/20 00:17 Zofran IVP 4 mg Q6H PRN Administration Nausea Pantoprazole Sodium 40 mg 04/18/20 09:00 04/21/20 09:00 Protonix IVP Not Given DAILY [place] Sodium Chloride 10 ml 04/16/20 19:37 04/17/20 19:25 Flush - Normal Saline IVF 10 ml PRN PRN Administration Saline Flush Hosp A/P - Plan 1. GI bleeding prob at the ileostomy site 2. Acute blood loss anemia/Iron deficiency anemia s/p IV iron and 1 unit PRBC 3. Generalized weakness and lightheadedness secondary to above. 4. Anxiety. 5. GERD 6. History of Crohn disease, status post total colectomy and ileostomy. PLAN: Cont clear liqd diet Cont IV PPI Repeat HH later today and in AM GI/Surg following Cont other meds as above Transfuse if Hb <7 DC prob in AM if stable
[2020-04-21 16:34] VITALS: BP 118/65; TEMP 98.8
[2020-04-21] MEDS: Acetaminophen 325 MG TAB PO PRN (18:03)
[2020-04-21] MEDS: ALPRAZolam 0.25 MG TAB PO PRN (18:03)
--- NOTE | 2020-04-22 01:58 | DIS ---
DATE OF ADMISSION: 04/16/2020 DATE OF DISCHARGE: 04/21/2020 DISCHARGE DISPOSITION: [facility] in [place] for higher level of care. The patient was seen and examined on the day of discharge. Denies any new complaints. No new GI bleeding today. BRIEF HOSPITAL COURSE: The patient is a 69-year-old white female with Crohn disease, status post total colectomy and ileostomy, presented to the hospital with lower GI bleeding. She was monitored closely with frequent hemoglobin checks. Orthostatic vitals remained negative. She was found to have iron deficiency, for which she received two doses of IV iron. She also received 1 unit of PRBC this admission for hemoglobin drop of 6.9. She underwent EGD and ileoscopy. EGD showed multiple gastric polyps seen throughout the gastric fundus and the body consistent with fundic gland polyps related to PPI use. There was also small nonbleeding duodenal diverticulum with slight irregular Z-line with no evidence of esophagitis. Ileoscopy showed increased mucosal erythema, friability, and blood clot noted along the output aspect of the ostomy, most likely the source of bleeding. Her bleeding recurred at two different occasions. She had a nuclear medicine tagged red blood cell scan today that showed focal uptake of radiotracer in the right lower quadrant corresponding to the ileostomy site. Her H and H today is 7.6. I discussed the case with the primary surgeon, Dr. Cohen at [facility]. He recommended the patient to be transferred to that facility for higher level of care. The patient was accepted by the hospitalist at that facility. FINAL DIAGNOSES: 1. Gastrointestinal bleeding at the ileostomy site. 2. Acute blood loss anemia, status post 1 unit of PRBC. 3. Iron deficiency anemia, status post IV iron. Her iron was 41 with TIBC 341 and ferritin of 7.64. 4. Anxiety. 5. Gastroesophageal reflux disease. 6. Crohn disease, status post total colectomy and ileostomy. 7. The patient understands the above plan of care. Job ID: [id number]
[2020-04-22] MEDS ORDERED: Escitalopram Oxalate 10 mg Tablet PO SCH (09:00)
--- NOTE | 2020-04-22 11:01 | EKG ---
Test Reason : Blood Pressure : / mmHG Vent. Rate : 071 BPM Atrial Rate : 071 BPM P-R Int : 142 ms QRS Dur : 086 ms QT Int : 406 ms P-R-T Axes : 012 -02 057 degrees QTc Int : 441 ms Normal sinus rhythm Normal ECG Confirmed by JASWINDER KNIGHT DO ([id number]), pictures editor CASEY CAMARILLO ([id number]) on 04/22/2020 11:01:36 AM Referred By: Confirmed By:JASWINDER KNIGHT DO
== END 2020-04-21 18:54 | disposition short-term general hospital (02) | DRG 394 ==
LOC: ERS 14:21 → 2NO 21:33 → OBSVTOIN 21:33 → ONC 04-17 18:48
PROVIDERS: ADMIT Internal Medicine; ATTEND Internal Medicine
PROC: 0DB68ZX Excision of Stomach, Via Natural or Artificial Opening Endoscopic, Diagnostic (ICD-10-PCS; principal; 2020-04-17)
PROC: 0DJD8ZZ Inspection of Lower Intestinal Tract, Via Natural or Artificial Opening Endoscopic (ICD-10-PCS; 2020-04-17)
PROC: 30233N1 Transfusion of Nonautologous Red Blood Cells into Peripheral Vein, Percutaneous Approach (ICD-10-PCS; 2020-04-19)
DX: K94.11 Enterostomy hemorrhage (principal); D62 Acute posthemorrhagic anemia; Y83.3 Surgical operation with formation of external stoma as the cause of abnormal reaction of the patient, or of later complication, without mention of misadventure at the time of the procedure; D50.9 Iron deficiency anemia, unspecified; K21.9 Gastro-esophageal reflux disease without esophagitis; F41.1 Generalized anxiety disorder; M19.90 Unspecified osteoarthritis, unspecified site; F32.9 Major depressive disorder, single episode, unspecified; K31.7 Polyp of stomach and duodenum; K57.10 Diverticulosis of small intestine without perforation or abscess without bleeding; T47.1X5A Adverse effect of other antacids and anti-gastric-secretion drugs, initial encounter; Z90.49 Acquired absence of other specified parts of digestive tract; Z90.710 Acquired absence of both cervix and uterus; Z87.19 Personal history of other diseases of the digestive system; Z79.899 Other long term (current) drug therapy
CPT/HCPCS: 36415; 36430; 78278; 80053; 82728; 83540; 83550; 85014; 85018; 85025; 85610; 86850; 86900; 86901; 87045; 87046; 87427; 87449; 88305; 88312; 93005; 96361; 96365; 96375; 96376; A9604; C9113; G0378; J2001; J2405; J2704; J2916; J3490; P9016

== ENCOUNTER 2025-08-05 12:34 | Outpatient (CLI) | payer MEDICARE ==
[2025-08-05 13:38] LABS: #Basophils Less than 0.03 10x3/uL (0.0-0.2); #Eosinophils 0.11 10x3/uL (0.0-0.7); #Monocytes 0.28 10x3/uL (0.11-0.59); #Neutrophils 2.14 10x3/uL (1.40-6.50); %Basophils 0.6 % (0.0-1.0); %Eosinophils 3.4 % (0.0-10.0); %Lymphocytes 21.5 % (21.0-51.0); %Monocytes 8.6 % (0.0-10.0); %Neutrophils 65.6 % (42.0-75.0); Hematocrit 35.8 % (36.0-47.0); Hemoglobin 11.6 g/dL (12.0-16.0); Mean Corpuscular Hemoglobin 29.7 pg (27.0-31.0); Mean Corpuscular Volume 91.6 fL (78.0-98.0); Platelet Count 111 10x3/uL (130-400); Red Blood Cell (RBC) Count 3.91 mill/uL (4.20-5.40); White Blood Cell (WBC) Count 3.26 10x3/uL (4.8-10.8)
[2025-08-05 13:55] LABS: Anion Gap 13 mmol/L (10-20); BUN (Urea Nitrogen) 17 mg/dL (9.8-20.1); Calc. Creatinine Clearance 0 mL/min (70-130); Calcium 8.9 mg/dL (7.8-10.44); Carbon Dioxide 26 mmol/L (23-31); Chloride 107 mmol/L (98-107); Glucose 108 mg/dL (83-110); Potassium 3.9 mmol/L (3.5-5.1); Sodium 142 mmol/L (136-145)
== END 2025-08-05 12:35 | disposition home or self-care (01) ==
LOC: LABBT 12:34
PROVIDERS: ATTEND Internal Medicine
DX: Z01.818 Encounter for other preprocedural examination (principal); K94.10 Enterostomy complication, unspecified
CPT/HCPCS: 80048; 85025; 93005; 93010

== ENCOUNTER 2025-08-08 09:37 | Day surgery (SDC) | payer MEDICARE ==
[2025-08-05 12:52] VITALS: BMI 28.3
[2025-08-08] MEDS ORDERED: fentaNYL PF 100 MCG/2 ML SYRINGE ONE ×2 (12:22→12:27)
[2025-08-08] MEDS ORDERED: PROPOFOL 0 ML ONE (12:22)
[2025-08-08] MEDS ORDERED: Rocuronium Bromide 10 MG/ML (10ML VIAL) ONE ×2 (12:22→12:29)
[2025-08-08] MEDS ORDERED: PROPOFOL 20 ML ONE (12:28)
[2025-08-08] MEDS ORDERED: Lidocaine 1% PF 5 ML VIAL ONE (12:29)
[2025-08-08] MEDS ORDERED: hydrALAZINE 20 MG/ML VIAL SLOW IVP PRN (12:53)
[2025-08-08] MEDS ORDERED: Ondansetron PF 4 MG/2 ML Vial IVP PRN (12:53)
[2025-08-08] MEDS ORDERED: metroNIDAZOLE 500 MG (100 mL) BAG ONE (12:56)
[2025-08-08] MEDS ORDERED: CEFAZOLIN 2 GM VIAL ONE (12:57)
[2025-08-08] MEDS ORDERED: Acetaminophen 325 MG TAB PO SCH (13:00)
[2025-08-08] MEDS ORDERED: Ondansetron PF 4 MG/2 ML Vial ONE (13:30)
[2025-08-08] MEDS ORDERED: SUGAMMADEX SODIUM 200 MG/2 ML VIAL ONE (13:38)
[2025-08-08] MEDS ORDERED: Ketorolac Tromethamine 30 MG (1 mL) VIAL IVP SCH (18:00)
[2025-08-09] MEDS ORDERED: Enoxaparin 40 MG (0.4 mL) SYRINGE SC SCH (09:00)
== END 2025-08-08 15:23 | disposition home or self-care (01) ==
LOC: SDC 09:37
PROVIDERS: ATTEND Surgery
PROC: 0DW807Z Revision of Autologous Tissue Substitute in Small Intestine, Open Approach (ICD-10-PCS; principal; 2025-08-08)
DX: K94.10 Enterostomy complication, unspecified (principal); K21.9 Gastro-esophageal reflux disease without esophagitis; K50.018 Crohn's disease of small intestine with other complication
CPT/HCPCS: 44314; 82962; J1100; J2704; 36416; A5063